=== PATIENT | female | born 1995 | race Caucasian/White ===

== ENCOUNTER 2017-12-21 21:58 | Emergency (ER) | payer SELFPAY ==
[~2017-12-21] VITALS: Ht 167.6 cm; Wt 81.6 kg
[2017-12-21 22:10] VITALS: BP_SYST 120
--- NOTE | 2017-12-21 22:25 | NUR ---
Patient triaged and placed in waiting room. VSS and patient appears in no acute distress at this time. Accompanied by self, awaiting available bed, and MD notified of need for MSE.
[2017-12-21 22:54] LABS: INFLUENZA A&B ANTIGEN SCREEN NEGATIVE FOR A & B (NEGATIVE); STREPTOCOCCUS A SCREEN (RAPID) NEGATIVE (NEGATIVE)
--- NOTE | 2017-12-21 23:05 | NUR ---
Patient to ER bed 5 to gown for evaluation. Side rails up. Report given to CAMACHO BARBER
--- NOTE | 2017-12-21 23:12 | NUR ---
Pt states she has had sore throat, congestion, and malaise for one day. Will continue to monitor. No distress noted.
[2017-12-21 23:44] VITALS: BP_SYST 120
--- NOTE | 2017-12-21 23:44 | NUR ---
Patient given written and verbal discharge instructions and verbalizes understanding. ER MD discussed with patient the results and treatment provided. Patient in stable condition. ID arm band removed. Rx of Tamiflu and Motrin given. Patient educated on pain management and to follow up with PMD. Pain Scale 0/10. Opportunity for questions provided and answered. Medication side effect fact sheet provided.
== END 2017-12-21 23:44 | disposition home or self-care (01) ==
LOC: SED 21:58
DX: J11.1 Influenza due to unidentified influenza virus with other respiratory manifestations (principal)
CPT/HCPCS: 36415; 86403; 86710; 87081; 99284

== ENCOUNTER 2019-04-20 10:14 | Emergency (ER) | payer SELFPAY ==
[~2019-04-20] VITALS: Ht 167.6 cm; Wt 86.2 kg
[2019-04-20 10:20] VITALS: BP_SYST 104
[2019-04-20 10:45] VITALS: BP_SYST 104
[2019-04-20] MEDS ORDERED: LORazepam 1 MG TABLET PO ONE (10:45)
== END 2019-04-20 10:45 | disposition home or self-care (01) ==
LOC: SED 10:14
DX: F43.9 Reaction to severe stress, unspecified (principal); F41.9 Anxiety disorder, unspecified
CPT/HCPCS: 99283; 99284

== ENCOUNTER 2019-04-26 19:00 | Emergency (ER) | payer MEDICAID ==
[~2019-04-26] VITALS: Ht 167.6 cm; Wt 90.7 kg
[2019-04-26 19:04] VITALS: BP_SYST 154
--- NOTE | 2019-04-26 19:10 | NUR ---
Patient to ER bed 5 to gown for evaluation. Side rails up.
--- NOTE | 2019-04-26 19:15 | NUR ---
Patient is awake, alert, and oriented x4. Patient reports having anxiety since last week, has no primary care coordinator so she come's to the ER to manage her anxiety.
--- NOTE | 2019-04-26 19:20 | NUR ---
ER Dr. Pacheco at bedside examining patient.
--- NOTE | 2019-04-26 19:38 | NUR ---
Patient given written and verbal discharge instructions and verbalizes understanding. ER MD discussed with patient the results and treatment provided. Patient in stable condition. ID arm band removed. Patient provided list for [facility]. Rx of atarax given. Patient educated on pain management and to follow up with PMD. Pain Scale 0/10. Opportunity for questions provided and answered. Medication side effect fact sheet provided.
[2019-04-26 19:39] VITALS: BP_SYST 145
== END 2019-04-26 19:39 | disposition home or self-care (01) ==
LOC: SED 19:00
DX: F41.9 Anxiety disorder, unspecified (principal); R03.0 Elevated blood-pressure reading, without diagnosis of hypertension; F17.210 Nicotine dependence, cigarettes, uncomplicated
CPT/HCPCS: 99284

== ENCOUNTER 2020-01-10 13:30 | Emergency (ER) | payer SELFPAY ==
[~2020-01-10] VITALS: Ht 167.6 cm; Wt 90.7 kg
[2020-01-10 13:35] VITALS: BP_SYST 102
--- NOTE | 2020-01-10 13:35 | NUR ---
BROUGHT BACK TO BED #8 AND TRIAGED. REPORT GIVEN TO SIENA
--- NOTE | 2020-01-10 13:40 | NUR ---
pt arrives from home w/ c/o cough and congestion. denies any fever. vss
--- NOTE | 2020-01-10 13:40 | NUR ---
Hitesh carreon in EDM - 01/10/20 at 1948 by AGUSTIN pt arrives from home after sustaining a lac to right hand w/ a saw blade. pt is able to move all the fingers on the affected hand. Area cleansed w/ NS and betadine.
--- NOTE | 2020-01-10 14:03 | NUR ---
DR MACHUCA AT BEDSIDE FOR EVALUATION
[2020-01-10 14:45] VITALS: BP_SYST 111
--- NOTE | 2020-01-10 14:46 | NUR ---
Patient given written and verbal discharge instructions and verbalizes understanding. ER MD discussed with patient the results and treatment provided. Patient in stable condition. ID arm band removed. Rx of ROBITUSSIN, TYLENOL given. Patient educated on pain management and to follow up with PMD. Pain Scale 0/10. Opportunity for questions provided and answered. Medication side effect fact sheet provided.
== END 2020-01-10 14:46 | disposition home or self-care (01) ==
LOC: SED 13:30
DX: J06.9 Acute upper respiratory infection, unspecified (principal); F41.9 Anxiety disorder, unspecified; F12.90 Cannabis use, unspecified, uncomplicated
CPT/HCPCS: 36415; 86710; 99283